=== PATIENT | male | born 1985 | race Caucasian/White ===

== ENCOUNTER 2023-04-30 20:47 | Emergency (ER) | payer OTHER, SELFPAY ==
[2023-04-30 20:50] VITALS: BP 168/89; PULSE 128; RESP 24; TEMP 36.6; O2SAT 100; BMI 36.8
--- NOTE | 2023-04-30 21:04 | W.ED.ALLEREA ---
HPI - Allergic Reaction General: Chief complaint: Allergic Reaction Stated complaint: sob Time Seen by Provider: 04/30/23 20:59 Source: patient Mode of arrival: ambulatory Limitations: no limitations History of Present Illness: HPI narrative: 38-year-old male who states that he was stung by yellow jackets this evening he states that he started to break out in a rash and having some shortness of breath he gave himself an EpiPen roughly 30 minutes ago his rashes improved his breathing states he feels extremely shaky and anxious currently he is tachycardic he denies any vomiting denies any diarrhea denies any pain. Associated symptoms: Deny abdominal pain, nausea or vomiting Review of Systems Const: Denies: fever(s) or chills ENMT: Denies: throat pain or dental pain Card: Denies: chest pain Resp: Reports: dyspnea GI: Denies: abdominal pain, nausea, vomiting or diarrhea Musc: Denies: neck pain or back pain Skin/Breast: Reports: rash All/Imm: Reports: urticaria Physical Exam Const: COMMON NORMALS: no acute distress, patient oriented x3 and healthy appearing HENMT: COMMON NORMALS: normocephalic and atraumatic HEAD & SCALP: normocephalic and atraumatic THROAT: posterior oropharynx normal Neck/C-Spine: COMMON NORMALS: full ROM and supple Chest: COMMONS NORMALS: normal inspection of the chest and normal palpation of entire chest wall Resp: COMMON NORMALS: normal respiratory effort, No retractions, No use of accessory muscles and clear to auscultation bilaterally AUSCULTATION: clear to auscultation bilaterally Cardio: COMMON NORMALS: regular rhythm and No murmurs present (Cardio) RATE: tachycardic RHYTHM: regular rhythm GI: COMMON NORMALS: Normal to inspection, nondistended, normoactive bowel sounds present, Soft to palpation, non-tender and no masses PALPATION: Yes Soft to palpation Extremity: COMMON NORMALS: normal to inspection and full ROM Neuro: COMMON NORMALS: patient oriented x3, moves all extremities and no focal motor deficits Psych: COMMON NORMALS: mental status grossly normal, Normal thought process present and cooperative THOUGHT PROCESS: Normal thought process present Skin: COMMON NORMALS: no rashes or lesions noted and no wounds GENERAL SKIN EXAM: no rashes or lesions noted Course Vital Signs: Vital signs: Vital Signs Temperature 97.8 F 04/30/23 20:50 Pulse Rate 106 H 04/30/23 22:34 Respiratory Rate 24 H 04/30/23 20:50 Blood Pressure 160/103 04/30/23 22:34 Pulse Oximetry 95 04/30/23 22:34 Oxygen Delivery Me thod Room Air 04/30/23 20:50 MDM - Allergic Reaction Medical Decision Making Patient presents here with allergic reaction he is much improved he is well-appearing here we will refill his EpiPen he stable for discharge to follow-up with PCP and return if worsening. Discharge Plan Discharge Patient Disposition: Home Clinical Impression: Allergic reaction Condition: Stable Prescriptions: New EpiPen 2-Ezekiel 0.3 mg/0.3 mL auto-injector 0.3 mg IM Q20M PRN (Reason: anaphylaxis) Qty: 2 0RF Rx Instructions: not to exceed 6 doses per episode Discharge Orders: Discharge ED (Routine); Ordered 04/30/23 Ordered By: Shazia Thurston Discharge Diet: Advance as tolerated Discharge Activity: Resume usual activity Patient Instructions: General Allergic Reaction (ED) Coding Level of Care Code ED Engagement Quality Consultant for Mony Sarmiento
[2023-04-30] MEDS: LORazepam 2 mg/mL INJ 1 mL 1 MG IVP (21:36)
[2023-04-30] MEDS: famotidine 20 mg/2 mL INJ 40 MG IVP (21:40)
[2023-04-30] MEDS: diphenhydrAMINE 50 mg/mL SDV 1mL 25 MG IVP (21:46)
[2023-04-30] MEDS: methylPREDNISolone sod succ 125 MG in water for injection-sterile 2 ML 24 MG IVP (21:49)
[2023-04-30 22:34] VITALS: BP 160/103; PULSE 106; O2SAT 95
--- NOTE | 2023-05-05 13:13 | DCPLANNER ---
spd manager called patient due to no primary care physician - no contact at this time.
--- NOTE | 2023-05-24 13:27 | DCPLANNER ---
assistant merchandise manager called patient due to no primary care physician - unable to speak with patient at this time, a voicemail was left for patient to return porter sample case phone call.
== END 2023-04-30 22:35 | disposition home or self-care (01) ==
PROVIDERS: Emergency Provider Emergency Medicine
DX: T63.461A Toxic effect of venom of wasps, accidental (unintentional), initial encounter (principal)
CPT/HCPCS: 96374; 96375; 99284; J1200; J2060; J2930; J3490

== ENCOUNTER → 2023-07-15 13:03 | Outpatient (BNVA) | payer OTHER, SELFPAY | PROVIDERS: Visit Provider Family Medicine | DX: J02.9 Acute pharyngitis, unspecified (principal); J01.90 Acute sinusitis, unspecified | CPT/HCPCS: 87880 ==